=== PATIENT | female | born 1970 | race Caucasian/White ===

== ENCOUNTER 2018-07-17 08:19 | Inpatient (IN) | payer MEDICAID ==
[2018-07-17] MEDS ORDERED: MIDAZOLAM 1 MG/ML 2 ML INJ (10:40)
[2018-07-17] MEDS ORDERED: FENTAnyl 50 MCG/ML VIAL (10:40)
[2018-07-17] MEDS ORDERED: PROPOFOL 20 ML (10:41)
[2018-07-17] MEDS ORDERED: LIDOCAINE 2% (SDV) 5 ML INJ (10:41)
[2018-07-17] MEDS ORDERED: SEVOFLURANE 15 MIN (10:55)
[2018-07-17] MEDS ORDERED: MEPERIDINE 25 MG INJ IV (11:00)
[2018-07-17] MEDS ORDERED: OXYCODONE/ACETAMINOPHEN (5/325) TAB PO ×2 (11:00)
[2018-07-17] MEDS ORDERED: MIDAZOLAM 1 MG/ML 2 ML INJ IV (11:00)
[2018-07-17] MEDS ORDERED: HYDROmorphONE 1 MG/5 ML IV SYRINGE IV (11:00)
[2018-07-17] MEDS: ISOSULFAN BLUE 1% 5 ML INJ SC (11:22)
[2018-07-17] MEDS ORDERED: METOCLOPRAMIDE 10 MG INJ (11:24)
[2018-07-17] MEDS ORDERED: ONDANSETRON 4 MG INJ (11:24)
[2018-07-17] MEDS ORDERED: DEXAMETHASONE 4 MG/ML 5 ML INJ (11:24)
[2018-07-17] MEDS ORDERED: CEFAZOLIN 1 GM INJ (11:24)
[2018-07-17] MEDS ORDERED: FAMOTIDINE 20 MG INJ (11:25)
[2018-07-17] MEDS ORDERED: morphine 2 MG INJ IV (12:30)
[2018-07-17] MEDS: ONDANSETRON 4 MG INJ IV ×2 (13:15→18:26)
[2018-07-17] MEDS: HYDROmorphONE 1 MG/5 ML IV SYRINGE IV ×2 (13:15→13:24)
[2018-07-17] MEDS: D5W-0.45 NACL + KCL 20 MEQ 1,000 ML IV ×2 (15:18→23:12)
[2018-07-17] MEDS: ACETAMINOPHEN 1000MG/100ML IV 100 ML IVPB (20:44)
[2018-07-18] MEDS: D5W-0.45 NACL + KCL 20 MEQ 1,000 ML IV ×2 (04:24→08:48)
[2018-07-18 05:23] LABS: ADD MAN DIFF? NO
[2018-07-18 05:26] LABS: BASOPHILS % 0.1 % (0.0-2.0); HEMATOCRIT 32.7 % (37.0-47.0); HEMOGLOBIN 11.1 g/dl (12.0-16.0); LYMPHOCYTES # 1.2 10^3/ul (0.8-2.9); LYMPHOCYTES % 11.1 % (15.0-51.0); MEAN CORPUSCULAR HGB CONC 33.9 g/dl (32.0-37.0); MEAN CORPUSCULAR VOLUME 94.2 fl (82.0-101.0); MEAN PLATELET VOLUME 9.8 fl (7.4-10.4); MONOCYTE # 0.9 10^3/ul (0.3-0.9); MONOCYTES % 7.7 % (0.0-11.0); NEUTROPHILS % 80.5 % (39.0-77.0); PLATELET COUNT 255 10^3/UL (140-415); RED BLOOD COUNT 3.47 10^6/ul (4.20-5.40); RED CELL DISTRIBUTION WIDTH 12.4 % (11.5-14.5)
[2018-07-18 05:26] LABS: WHITE BLOOD COUNT 11.2 10^3/ul (4.8-10.8)
[2018-07-18 06:01] LABS: ANION GAP 7 (5-13); BLOOD UREA NITROGEN 13 mg/dl (7-20); CALCIUM 8.8 mg/dl (8.4-10.2); CARBON DIOXIDE 22 mmol/L (21-31); CHLORIDE 110 mmol/L (97-110); CREATININE 0.71 mg/dl (0.44-1.00); Estimated GFR > 60 mL/min (>60); GLUCOSE 143 mg/dl (70-220); POTASSIUM 4.2 mmol/L (3.5-5.1); SODIUM 139 mmol/L (135-144)
[2018-07-18] MEDS: ONDANSETRON 4 MG INJ IV (14:11)
[2018-07-18] MEDS: CEPASTAT LOZENGE MT (14:11)
[2018-07-18] MEDS: HYDROCODONE/APAP (5/325) TAB PO (14:18)
== END 2018-07-18 15:07 | disposition home or self-care (01) | DRG 581 ==
LOC: REC 08:19 → MS1 13:52
PROC: 0HBU0ZZ Excision of Left Breast, Open Approach (ICD-10-PCS; principal; 2018-07-17 10:30)
PROC: 07B60ZX Excision of Left Axillary Lymphatic, Open Approach, Diagnostic (ICD-10-PCS; 2018-07-17 10:30)
DX: C50.912 Malignant neoplasm of unspecified site of left female breast (principal); Z80.3 Family history of malignant neoplasm of breast
CPT/HCPCS: 80048; 84703; 85025; 88307; 88331